=== PATIENT | female | born 2000 | race Two or more races ===

== ENCOUNTER → 2024-05-22 | Outpatient (CLI) | payer OTHER | LOC: M PLAIMG 08:09 | PROVIDERS: ATTEND Otolaryngology | DX: J34.1 Cyst and mucocele of nose and nasal sinus (principal) ==

== ENCOUNTER 2024-07-30 06:36 | Day surgery (SDC) | payer OTHER ==
[~2024-07-30] VITALS: Ht 160 cm; Wt 81.7 kg
[~2024-07-30 06:36] MED LIST: SERT200C PO; VITA100093 PO
[2024-07-30] MEDS ORDERED: NS (Normal Saline) 0.9% 1,000 ML IV SCH ×2 (07:15→10:10)
[2024-07-30] MEDS: OXYMETAZOLINE 0.05% NASAL SPRAY As Ordered ONE (09:10)
[2024-07-30] MEDS: LIDOCAINE W/EPINEPHRINE 1% 20ML VIAL As Ordered ONE (09:10)
[2024-07-30] MEDS ORDERED: dexmedeTOMIDine (4MCG/ML)200MCG/50ML BTL (PRECEDEX) As Ordered ONE (09:14)
[2024-07-30] MEDS ORDERED: ACETAMINOPHEN 1000MG/100ML IV BAG As Ordered ONE (09:14)
[2024-07-30] MEDS ORDERED: propofoL 200 MG/20 ML VIAL As Ordered ONE (09:14)
[2024-07-30] MEDS ORDERED: MIDAZOLAM INJ 2MG/2ML VIAL As Ordered ONE (09:14)
[2024-07-30] MEDS ORDERED: LIDOCAINE 2% 100MG/5ML SDV (FOR ANES.) As Ordered ONE (09:14)
[2024-07-30] MEDS ORDERED: fentaNYL 250 MCG/5 ML INJECTION As Ordered ONE (09:14)
[2024-07-30] MEDS ORDERED: ROCURONIUM BROMIDE 50MG/5ML VIAL As Ordered ONE (09:14)
[2024-07-30] MEDS ORDERED: SUGAMMADEX SODIUM 500 MG/5 ML VIAL (BRIDION) As Ordered ONE (09:14)
[2024-07-30] MEDS ORDERED: ONDANSETRON 4MG 2ML VIAL As Ordered ONE (09:14)
[2024-07-30] MEDS ORDERED: METOCLOPRAMIDE INJ 10MG/2ML VIAL As Ordered ONE (09:14)
[2024-07-30] MEDS ORDERED: fentaNYL 100 MCG/2 ML INJECTION IV PRN (10:10)
[2024-07-30] MEDS: ONDANSETRON 4MG 2ML VIAL IV PRN (10:32)
[2024-07-30] MEDS: HYDROMORPHONE HCL 0.5 MG/ 0.5 ML SYRINGE IV PRN (10:33)
[2024-07-30] MEDS: oxyCODONE 5MG TAB PO PRN (10:40)
[2024-07-30 11:30] VITALS: BP 112/62; TEMP 97.6; O2SAT 98
[2024-07-30] MEDS ORDERED: ONDANSETRON 4MG 2ML VIAL IV PRN (12:00)
== END 2024-07-30 12:00 | disposition home or self-care (01) ==
LOC: M SDC 06:36
PROVIDERS: ATTEND Otolaryngology
DX: J34.1 Cyst and mucocele of nose and nasal sinus (principal); J32.8 Other chronic sinusitis; F32.A Depression, unspecified; F41.9 Anxiety disorder, unspecified; Z79.899 Other long term (current) drug therapy; Z88.8 Allergy status to other drugs, medicaments and biological substances; Z91.030 Bee allergy status
CPT/HCPCS: 31259; 61782; 81025; 88305; J0131; J1100; J1171; J2250; J2405; J2765; J3010